=== PATIENT | male | born 1945 ===

== ENCOUNTER 2017-12-05 08:56 | Day surgery (SDC) | payer MEDICARE ==
[~2017-12-05] VITALS: Ht 172.7 cm; Wt 91.6 kg
[~2017-12-05 08:56] MED LIST: CENTRUM SILVER1 EAC4 PO; ENALAPRIL MALEA10 MG PO; HYDROCHLOROTHIA25 MG PO; LIPITOR20 MG PO
== END 2017-12-05 11:33 | disposition home or self-care (01) ==
LOC: DSVR 08:56 → OPS 08:56 → DS 10:00 → OPS 11:33
PROVIDERS: Ophthalmology
PROC: 08RK3JZ Replacement of Left Lens with Synthetic Substitute, Percutaneous Approach (ICD-10-PCS; principal; 2017-12-05 10:15)
DX: H25.812 Combined forms of age-related cataract, left eye (principal); M19.90 Unspecified osteoarthritis, unspecified site; E78.00 Pure hypercholesterolemia, unspecified; I10 Essential (primary) hypertension; Z79.899 Other long term (current) drug therapy; Z87.81 Personal history of (healed) traumatic fracture; Z87.891 Personal history of nicotine dependence
CPT/HCPCS: J2250